=== PATIENT | female | born 1985 | race Two or more races ===

== ENCOUNTER 2022-03-22 07:23 | Emergency (ER) | payer BC, OTHER ==
[~2022-03-22] VITALS: Ht 162.6 cm; Wt 129.1 kg
[2022-03-22 07:57] LABS: Basophils # (auto) 0.1 10 ^3/uL (0-0.2); Basophils % (auto) 0.6 % (0.0-2.0); Eosinophils # (auto) 0.1 10 ^3/uL (0-0.8); Eosinophils % (auto) 0.7 % (0.0-7.0); Hematocrit 40.7 % (36.0-46.0); Hemoglobin 13.9 g/dL (12.2-16.2); Lymphocytes # (auto) 2.7 10 ^3/uL (0.4-5.4); Lymphocytes % (auto) 26.6 % (10.0-50.0); Mean Corpuscular Hgb Conc. 34.1 g/dL (32.0-36.0); Mean Corpuscular Volume 90.7 fL (80.0-100.0); Monocytes # (auto) 0.4 10 ^3/uL (0-1.3); Monocytes % (auto) 3.8 % (0.0-12.0); Neutrophils % (auto) 68.3 % (37.0-80.0); Red Blood Cells 4.49 10^6/uL (4.0-5.20); Red Cell Distribution Width 12.7 % (11.8-14.3); White Blood Cell 10.2 10^3/uL (4.4-10.8)
[2022-03-22 08:06] LABS: Albumin 3.8 g/dL (3.4-5.0); Calcium 8.7 mg/dL (8.5-10.1)
[2022-03-22 08:10] LABS: BUN/Creatinine Ratio 18.9; Bilirubin, Total 0.8 mg/dL (0.2-1.0); Total Protein 7.5 g/dL (6.4-8.2)
[2022-03-22 08:42] LABS: Urine Bacteria FEW /hpf (None Seen); Urine Blood Negative /uL (Negative); Urine Mucus FEW (None Seen); Urine Specific Gravity 1.021 (1.001-1.035); Urine WBC 13 /hpf (0 - 5)
[2022-03-22] MEDS ORDERED: CEPH-510 PO (10:46)
[2022-03-22 13:54] VITALS: BP 130/96
== END 2022-03-22 13:54 | disposition home or self-care (01) ==
LOC: ER 07:23
DX: N39.0 Urinary tract infection, site not specified (principal); Z32.01 Encounter for pregnancy test, result positive; Z79.899 Other long term (current) drug therapy
CPT/HCPCS: 36415; 76801; 76817; 80053; 81001; 84702; 85025

== ENCOUNTER 2023-12-18 08:08 | Inpatient (IN) | payer BC ==
[~2023-12-18] VITALS: Ht 162.6 cm; Wt 137.0 kg
[~2023-12-18 08:08] MED LIST: CEPH-510 PO
[2023-12-18] MEDS: PANTOPRAZOLE 40 MG TAB PO ONE (09:16)
[2023-12-18 09:31] LABS: Urine Bacteria None Seen /hpf (None Seen)
[2023-12-18 09:54] LABS: Basophils # (auto) 0 10 ^3/uL (0-0.2); Basophils % (auto) 0.4 % (0.0-2.0); Eosinophils # (auto) 0.1 10 ^3/uL (0-0.8); Eosinophils % (auto) 0.6 % (0.0-7.0); Hematocrit 41.1 % (36.0-46.0); Hemoglobin 14.6 g/dL (12.2-16.2); Lymphocytes # (auto) 2.7 10 ^3/uL (0.4-5.4); Lymphocytes % (auto) 22.3 % (10.0-50.0); Mean Corpuscular Hgb Conc. 35.5 g/dL (32.0-36.0); Monocytes # (auto) 0.6 10 ^3/uL (0-1.3); Monocytes % (auto) 4.9 % (0.0-12.0); Neutrophils # (auto) 8.7 10 ^3/uL (1.6-8.6); Neutrophils % (auto) 71.8 % (37.0-80.0); Nucleated Red Blood Cells % 0.1 %; Platelet Count (auto) 387 10^3/uL (140-450); Red Blood Cells 4.56 10^6/uL (4.0-5.20); Red Cell Distribution Width 12.9 % (11.8-14.3); White Blood Cell 12.1 10^3/uL (4.4-10.8)
[2023-12-18 09:58] LABS: Urine Blood Negative /uL (Negative); Urine Clarity Clear (Clear); Urine Color Light-Yellow (Yellow); Urine Protein, UAD Negative (Negative); Urine Specific Gravity 1.017 (1.001-1.035); Urine Urobilinogen Normal (Negative); Urine WBC 1 /hpf (0 - 5)
[2023-12-18 10:05] LABS: Chloride 105 mmol/L (98-107); Sodium 138 mmol/L (136-145)
[2023-12-18 10:07] LABS: Calcium 9.9 mg/dL (8.7-10.4)
[2023-12-18 10:11] LABS: Glucose 115 mg/dL (74-106)
[2023-12-18 10:12] LABS: BUN/Creatinine Ratio 12.3 (10.0-20.0); Blood Urea Nitrogen 7 mg/dL (9-23)
[2023-12-18 10:15] LABS: Anion Gap 8 (5-15); Carbon Dioxide 25 mmol/L (20-31)
[2023-12-18 10:38] LABS: Lipase 28 U/L (12-53)
[2023-12-18] MEDS ORDERED: NITROGLYCERIN 0.4 MG SL TAB SL PRN (15:15)
[2023-12-18] MEDS ORDERED: ONDANSETRON HCL 4 MG/2 ML VIAL IV PRN (15:15)
[2023-12-18] MEDS ORDERED: DOCUSATE SOD 100 MG CAP PO PRN (15:15)
[2023-12-18] MEDS: SODIUM CHLORIDE 0.9% 1,000 ML IV SCH (16:20)
[2023-12-18] MEDS: cefTRIAXone 1GM/50ML D5W 50 ML IV ONE (16:20)
[2023-12-18 19:20] VITALS: O2SAT 96
[2023-12-18] MEDS: MORPHINE SULFATE INJ 2 MG/ml SYRG IV PRN (21:27)
[2023-12-18 22:50] VITALS: BP 121/99; PULSE 80; RESP 20; TEMP 98.2; O2SAT 97
[2023-12-18 23:00] VITALS: BP 128/63; PULSE 80; RESP 20; TEMP 98.2; O2SAT 97
[2023-12-19] MEDS ORDERED: ASPI1TAB20 PO (00:43)
[2023-12-19] MEDS ORDERED: CHOL1CAP21 PO (00:43)
[2023-12-19] MEDS: ACETAMINOPHEN 325 MG TAB PO PRN (04:17)
[2023-12-19 05:00] VITALS: BP 109/51; PULSE 86; RESP 18; TEMP 98.1; O2SAT 98
[2023-12-19 09:00] VITALS: BP 117/60; PULSE 70; RESP 18; TEMP 98.5; O2SAT 98
[2023-12-19] MEDS: PANTOPRAZOLE 40 MG/10 ML VIAL INJ IV SCH (10:10)
[2023-12-19] MEDS: cefTRIAXone 1GM/50ML D5W 50 ML IV SCH (10:10)
[2023-12-19 11:14] LABS: Basophils # (auto) 0.1 10 ^3/uL (0-0.2); Basophils % (auto) 0.6 % (0.0-2.0); Eosinophils # (auto) 0.1 10 ^3/uL (0-0.8); Eosinophils % (auto) 0.8 % (0.0-7.0); Hematocrit 38.2 % (36.0-46.0); Hemoglobin 13.6 g/dL (12.2-16.2); Lymphocytes # (auto) 2.6 10 ^3/uL (0.4-5.4); Lymphocytes % (auto) 28.2 % (10.0-50.0); Mean Corpuscular Hemoglobin 32.1 pg (28.0-32.0); Mean Corpuscular Hgb Conc. 35.5 g/dL (32.0-36.0); Mean Corpuscular Volume 90.4 fL (80.0-100.0); Monocytes # (auto) 0.4 10 ^3/uL (0-1.3); Monocytes % (auto) 4.8 % (0.0-12.0); Neutrophils % (auto) 65.6 % (37.0-80.0); Platelet Count (auto) 357 10^3/uL (140-450); Red Blood Cells 4.22 10^6/uL (4.0-5.20); Red Cell Distribution Width 12.8 % (11.8-14.3); White Blood Cell 9.1 10^3/uL (4.4-10.8)
[2023-12-19 11:29] LABS: Alanine Aminotransferase 49 U/L (7-40); Albumin 4.4 g/dL (3.2-4.8); Alkaline Phosphatase 77 U/L (46-116); Anion Gap 8 (5-15); Aspartate Aminotransferase 44 U/L (13-40); BUN/Creatinine Ratio 9.4 (10.0-20.0); Blood Urea Nitrogen 5 mg/dL (9-23); Calcium 9.3 mg/dL (8.7-10.4); Carbon Dioxide 25 mmol/L (20-31); Chloride 107 mmol/L (98-107); Glucose 102 mg/dL (74-106); Potassium 3.7 mmol/L (3.5-5.1); Sodium 140 mmol/L (136-145)
[2023-12-19 11:30] LABS: Bilirubin, Total 1.2 mg/dL (0.2-1.0); Total Protein 7.2 g/dL (5.7-8.2)
[2023-12-19 13:00] VITALS: BP 112/57; PULSE 80; RESP 18; TEMP 98.4; O2SAT 97
[2023-12-19] MEDS ORDERED: LEVO500T91 PO (13:40)
[2023-12-19] MEDS ORDERED: PANT40T PO (13:40)
[2023-12-19 15:45] VITALS: BP 112/57; PULSE 80; RESP 18; TEMP 98.4; O2SAT 97
== END 2023-12-19 16:27 | disposition home or self-care (01) | DRG 392 ==
LOC: ER 08:08 → OVERFLOW 15:09 → WEST WING 15:32
PROVIDERS: ADMIT Nurse Practitioner Family; ATTEND Family Medicine
DX: K29.70 Gastritis, unspecified, without bleeding (principal); D72.829 Elevated white blood cell count, unspecified; E86.0 Dehydration
CPT/HCPCS: 36415; 74176; 80048; 80053; 81001; 81025; 83690; 85025; G0378; J2470